=== PATIENT | female | born 1980 | race Caucasian/White ===

== ENCOUNTER 2017-04-04 23:44 | Emergency (ER) | payer MEDICAID ==
[2017-04-05 01:03] VITALS: BMI 26.1
[2017-04-05 01:07] VITALS: TEMP 97.9
--- NOTE | 2017-04-05 01:42 | ED PDOC ---
Arrival/HPI - General Historian: Patient - History of Present Illness Time/Duration: < week Symptom Onset: Gradual Symptom Course: Unchanged Quality: Other Severity Level: 3 Activities at Onset: Rest Context: Sitting <Cornel Sepulveda - Last Filed: 04/05/17 05:07> <Bert Mallory - Last Filed: 04/05/17 05:08> - General Chief Complaint: Abnormal Skin Integrity Time Seen by Provider: 04/05/17 00:33 - History of Present Illness Narrative History of Present Illness (Text): 04/05/17 01:28 This is a 36 yr old female with no past medical history who comes to [facility] complaining of bumps on her torso and legs. The patient reports noticing the bumps on Tuesday. She described the bumps as red in nature with no discharge. She reports putting Camomile lotion on them with improvement in them. 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 She denies any nausea, vomiting, fevers, chills, chest pain, shortness of breath (Cornel Sepulveda) Past Medical History - Provider Review Nursing Documentation Reviewed: Yes - Travel History Have you recently traveled outside [place] w/in the past 3 mons?: No - Infectious Disease Hx of Infectious Diseases: None - Tetanus Immunization Tetanus Immunization: Unknown - Past Medical History Past Medical History: No Previous - Neurological Hx Migraine: Yes - Hematological/Oncological Hx Anemia: Yes - Musculoskeletal/Rheumatological Hx Falls: No - Psychiatric Hx Depression: No Hx Emotional Abuse: No Hx Physical Abuse: No Hx Substance Use: No - Past Surgical History Past Surgical History: No Previous - Surgical History Hx Tubal Ligation: Yes - Suicidal Assessment Feels Threatened In Home Enviroment: No <Cornel Sepulveda - Last Filed: 04/05/17 05:07> Family/Social History Family/Social History: No Known Family HX Smoking Status: Never Smoked Hx Alcohol Use: No Hx Substance Use: No Hx Substance Use Treatment: No <Cornel Sepulveda - Last Filed: 04/05/17 05:07> - Physician Review Nursing Documentation Reviewed: Yes <Bert Mallory - Last Filed: 04/05/17 05:08> Allergies/Home Meds <Cornel Sepulveda - Last Filed: 04/05/17 05:07> <Bert Mallory - Last Filed: 04/05/17 05:08> Allergies/Adverse Reactions: Allergies amoxicillin Allergy (Verified 04/05/17 01:04) RASH Review of Systems - Physician Review All systems were reviewed & negative as marked: Yes - Review of Systems Constitutional: Night Sweats. absent: Fatigue, Weight Change Eyes: Normal. absent: Vision Changes, Eye Pain ENT: Normal. absent: Rhinorrhea, Sinus Congestion Respiratory: Normal. absent: SOB, Cough, Sputum Cardiovascular: Normal. absent: Chest Pain, Palpitations Gastrointestinal: Normal. absent: Abdominal Pain, Constipation, Diarrhea, Nausea, Vomiting Genitourinary Female: Normal. absent: Frequency, Hematuria Musculoskeletal: Normal. absent: Back Pain Skin: Other (Red bumps on legs and torso) Neurological: Normal. absent: Headache, Dizziness Endocrine: absent: Polyuria, Polydipsia Hemo/Lymphatic: Normal. absent: Easy Bleeding Psychiatric: Normal <Cornel Sepulveda - Last Filed: 04/05/17 05:07> Physical Exam Vital Signs Reviewed: Yes Temperature: Afebrile Blood Pressure: Normal Pulse: Regular Respiratory Rate: Normal Appearance: Positive for: Well-Appearing, Non-Toxic, Comfortable Pain Distress: None Mental Status: Positive for: Alert and Oriented X 3 - Systems Exam Head: Present: Atraumatic, Normocephalic Pupils: Present: PERRL Extroacular Muscles: Present: EOMI. No: Gaze Palsy Conjunctiva: Present: Normal. No: Injected Mouth: Present: Moist Mucous Membranes. No: Dry, Drooling Neck: Present: Normal Range of Motion. No: JVD, Lymphadenopathy Respiratory/Chest: Present: Clear to Auscultation, Good Air Exchange. No: Respiratory Distress, Accessory Muscle Use, Wheezes Cardiovascular: Present: Normal S1, S2. No: Murmurs, Tachycardic, Bradycardic Abdomen: Present: Tenderness, Normal Bowel Sounds. No: Distention, Peritoneal Signs, Guarding Upper Extremity: Present: Normal Inspection. No: Cyanosis, Edema Lower Extremity: Present: Normal Inspection. No: Edema Skin: Present: Other (red bumps noted on lower extremities bilaterally and torso ). No: Warm, Rashes Psychiatric: Present: Alert, Oriented x 3, Normal Insight <Cornel Sepulveda - Last Filed: 04/05/17 05:07> Medical Decision Making <Cornel Sepulveda - Last Filed: 04/05/17 05:07> <Bert Mallory - Last Filed: 04/05/17 05:08> ED Course and Treatment: 04/05/17 01:58 Patient is a 36 yr old female who comes in with a red bumps for 3 days. The patient was given Benadryl for the itching. Patient to be discharged. ( Cornel Sepulveda) 04/05/17 02:10 In agreement with resident note, which includes further HPI details. Patient was seen and evaluated with resident, came up with plan and treatment together. (Bert Mallory) - Medication Orders Current Medication Orders: Discontinued Medications Diphenhydramine HCl (Benadryl) 25 mg PO STAT STA Stop: 04/05/17 02:06 Last Admin: 04/05/17 02:25 Dose: 25 mg <Cornel Sepulveda - Last Filed: 04/05/17 05:07> - PA / TRIAGE REGISTER NURSE / Resident Statement MD/DO has reviewed & agrees with the documentation as recorded. MD/DO has examined the patient and agrees with the treatment plan. - Scribe Statement The provider has reviewed the documentation as recorded by the Scribe <Bert Mallory - Last Filed: 04/05/17 05:08> - Scribe Statement 04/05/2017 Phoebe Caldwell Provider Scribe Attestation: All medical record entries made by the Scribe were at my direction and personally dictated by me. I have reviewed the chart and agree that the record accurately reflects my personal performance of the history, physical exam, medical decision making, and the department course for this patient. I have also personally directed, reviewed, and agree with the discharge instructions and disposition. (Bert Mallory) Disposition/Present on Arrival - Present on Arrival Any Indicators Present on Arrival: No History of DVT/PE: No History of Uncontrolled Diabetes: No Urinary Catheter: No History of Decub. Ulcer: No History Surgical Site Infection Following: None - Disposition Have Diagnosis and Disposition been Completed?: Yes Disposition Time: 01:58 Patient Plan: Discharge <Cornel Sepulveda - Last Filed: 04/05/17 05:07> <Bert Mallory - Last Filed: 04/05/17 05:08> - Disposition Diagnosis: Rash Disposition: HOME/ ROUTINE Condition: GOOD Discharge Instructions (ExitCare): Acute Rash (ED) Additional Instructions: Patient instructed to establish PMD care and f/u within one week. Patient should return to ED for any new symptoms or current symptoms worsen. Referrals: Ceci Sutton MD [Primary Care Provider] - Follow up with primary Forms: [employer] (Mongolian)
[2017-04-05] MEDS ORDERED: DiphenhydrAMINE 12.5 mg/5 ml LIQ UD (5 ml) PO STA (02:05)
[2017-04-05 02:32] VITALS: BP 116/82; PULSE 70; RESP 16; O2SAT 100
== END 2017-04-05 02:32 | disposition home or self-care (01) ==
LOC: ED 23:44
DX: R21 Rash and other nonspecific skin eruption (principal)